=== PATIENT | male | born 1975 | race American Indian/Alaskan Native ===

== ENCOUNTER 2016-09-14 06:31 | Emergency (ER) | payer MEDICAID, OTHER ==
[2016-09-14 07:02] VITALS: RESP 18; TEMP 98.1; O2SAT 100
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
[2016-09-14 12:14] LABS: BASO # 0.1 K/uL (0.0-0.2); BASO % 1.1 % (0.0-2.0); EOS # 0.1 K/uL (0.0-0.7); EOS % 2.7 % (0.0-4.0); HEMATOCRIT 37.1 % (35.0-51.0); LYMPH # 1.7 K/uL (1.0-4.3); LYMPH % 36.5 % (20.0-40.0); MEAN CELL VOLUME 95.8 fl (80.0-94.0); MEAN CORPUSCULAR HEMOGLOBIN 33.2 pg (27.0-31.0); MEAN CORPUSCULAR HGB CONC 34.7 g/dL (33.0-37.0); MEAN PLATELET VOLUME 7.2 fl (7.2-11.7); MONO # 0.3 K/uL (0.0-0.8); MONO % 6.4 % (0.0-10.0); NEUT # 2.5 K/uL (1.8-7.0); NEUT % 53.3 % (50.0-75.0); NRBC % 0.1 % (0.0-0.0); WHITE BLOOD COUNT 4.7 K/uL (4.8-10.8)
[2016-09-14 12:29] LABS: ALB/GLOB RATIO 1.2 (1.0-2.1); ALKALINE PHOSPHATASE 90 U/L (38-126); ALT/SGPT 30 U/L (21-72); AST/SGOT 50 U/L (17-59); BILIRUBIN,TOTAL 1.2 mg/dl (0.2-1.3); BLOOD UREA NITROGEN 13 mg/dl (9-20); CARBON DIOXIDE 27 mmol/L (22-30); CHLORIDE 106 mmol/L (98-107); GFR AFRICAN-AMERICAN > 60; GLUCOSE,RANDOM 137 mg/dL (75-110); PARTIAL THROMBOPLASTIN TIME 26.8 SECONDS (23.3-32.5); POTASSIUM 3.8 MMOL/L (3.6-5.0); SODIUM 142 mmol/l (132-148); TOTAL PROTEIN 7.1 G/DL (6.3-8.2)
[2016-09-14 13:14] VITALS: BP 136/68; PULSE 64
== END 2016-09-14 13:08 | disposition home or self-care (01) ==
LOC: H.ER 06:31
DX: R10.9 Unspecified abdominal pain (principal); S29.9XXA Unspecified injury of thorax, initial encounter; S05.90XA Unspecified injury of unspecified eye and orbit, initial encounter; S09.90XA Unspecified injury of head, initial encounter; S02.81XA Fracture of other specified skull and facial bones, right side, initial encounter for closed fracture; W19.XXXA Unspecified fall, initial encounter; Y92.89 Other specified places as the place of occurrence of the external cause

== ENCOUNTER 2016-11-08 04:46 | Emergency (ER) | payer MEDICAID, OTHER ==
[2016-11-08 04:47] VITALS: BMI 24.4
[2016-11-08 05:17] VITALS: BP 135/79; TEMP 96.8
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
[2016-11-08 05:45] VITALS: PULSE 101; RESP 16; O2SAT 95
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
== END 2016-11-08 06:01 | disposition home or self-care (01) ==
LOC: H.ER 04:46
DX: S09.90XA Unspecified injury of head, initial encounter (principal); S20.219A Contusion of unspecified front wall of thorax, initial encounter; Y04.0XXA Assault by unarmed brawl or fight, initial encounter; Y92.89 Other specified places as the place of occurrence of the external cause

== ENCOUNTER 2016-12-05 18:54 | Observation (INO) | payer SELFPAY ==
[2016-12-05 18:54] VITALS: BMI 24.4
[2016-12-05 18:58] VITALS: O2SAT 96
[2016-12-05] MEDS ORDERED: Sodium Chloride 0.9% 1,000 ML IV STA (19:09)
[2016-12-05 19:40] LABS: BASO % 0.8 % (0.0-2.0); EOS % 0.4 % (0.0-4.0); HEMATOCRIT 33.6 % (35.0-51.0); LYMPH # 1.7 K/uL (1.0-4.3); LYMPH % 29.8 % (20.0-40.0); MEAN CORPUSCULAR HEMOGLOBIN 32.8 pg (27.0-31.0); MEAN CORPUSCULAR HGB CONC 33.8 g/dL (33.0-37.0); MEAN PLATELET VOLUME 7.3 fl (7.2-11.7); MONO # 0.4 K/uL (0.0-0.8); MONO % 7.8 % (0.0-10.0); NEUT # 3.4 K/uL (1.8-7.0); NEUT % 61.2 % (50.0-75.0); NRBC % 0.1 % (0.0-0.0); RED CELL DISTRIBUTION WIDTH 13.2 % (11.5-14.5); WHITE BLOOD COUNT 5.6 K/uL (4.8-10.8)
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
[2016-12-05 20:58] LABS: ALCOHOL SERUM 249 mg/dl (0-10); BLOOD UREA NITROGEN 12 mg/dl (9-20); CALCIUM 8.6 mg/dL (8.4-10.2); CARBON DIOXIDE 23 mmol/L (22-30); CHLORIDE 109 mmol/L (98-107); GFR AFRICAN-AMERICAN > 60; GLUCOSE,RANDOM 84 mg/dL (75-110); POTASSIUM 3.4 MMOL/L (3.6-5.0); SODIUM 146 mmol/l (132-148)
--- NOTE | 2016-12-06 00:18 | ED PDOC ---
- Laboratory Results Result Diagrams: 12/05/16 19:36 12/05/16 19:36 - ECG O2 Sat by Pulse Oximetry: 96 (RA) Pulse Ox Interpretation: Normal Medical Decision Making Medical Decision Making: Time: 0000 Initial plan: -- Patient signed out to me by Dr. Sweeney. Pending clinical sobriety. --ED-Observation 0430: Discharge Instructions: Re-evaluation. Patient feels better. Discussed results and plan with patient who expresses understanding. Counseling was provided regarding the diagnosis and prognosis. All questions answered and there is agreement with the plan to discharge home with instructions. Patient stable for discharge. Return if symptoms persist or worsen. Scribe Attestation: Documented by Kathy Segundo, acting as a scribe for Benson Taveras MD. Scribe Attestation: All medical record entries made by the Scribe were at my direction and personally dictated by me. I have reviewed the chart and agree that the record accurately reflects my personal performance of the history, physical exam, medical decision making, and the department course for this patient. I have also personally directed, reviewed, and agree with the discharge instructions and disposition. Disposition - Clinical Impression Clinical Impression: Alcohol abuse with intoxication, Polysubstance abuse - POA Present On Arrival: None - Disposition Disposition: Routine/Home Disposition Time: 00:00 Condition: IMPROVED ED OBSERVATION Date of observation admission: 12/06/16 Time of observation admission: 00:00 - Observation admission statement Patient is being placed in observation because:: Alcohol intoxication - Goals of Observation Goals of observation are:: Clinical Sobriety - Progress Note Progress Note: 12/06/16 01:30 Pending Clinical Sobriety 12/06/16 03:00 Pending Clinical Sobriety 12/06/16 04:30 Pending Clinical Sobriety
[2016-12-06 04:41] VITALS: BP 129/71; PULSE 73; RESP 17; TEMP 98.7
--- NOTE | 2016-12-06 10:20 | CARD ---
APPROVED REPORT EKG Measurement Heart [id number] <Conclusion> Normal sinus rhythm Minimal voltage criteria for LVH, may be normal variant Prolonged QT Abnormal ECG
== END 2016-12-06 04:35 | disposition home or self-care (01) ==
LOC: H.ER 18:54 → H.EROBSV 22:22
PROVIDERS: ADMIT Emergency Medicine; ATTEND Emergency Medicine
DX: F10.129 Alcohol abuse with intoxication, unspecified (principal); F17.200 Nicotine dependence, unspecified, uncomplicated
CPT/HCPCS: 80048; 84484; 85025; 93005; 96360; 99283; G0378; G0480; J7040

== ENCOUNTER 2017-02-10 03:39 | Emergency (ER) | payer MEDICAID, OTHER ==
[2017-02-10 03:39] VITALS: BMI 24.4
[2017-02-10 03:52] VITALS: BP 116/80; PULSE 109; RESP 16; TEMP 98.6; O2SAT 97
--- NOTE | 2017-02-10 04:13 | ED PDOC ---
HPI: Back Time Seen by Provider: 02/10/17 03:54 Chief Complaint (Nursing): Back Pain Chief Complaint (Provider): back pain History Per: Patient History/Exam Limitations: no limitations Onset/Duration Of Symptoms: Hrs (2) Current Symptoms Are (Timing): Still Present Exacerbating Factor(s): Turning, Movement Additional History Per: Patient Additional Complaint(s): 41 y/o male presents to ED with back pain x 2 hours. Patient states symptoms started after sleeping on his book bag, worse with movement. Denies numbness/ weakness of extremities, bowel/bladder incontinence, urinary symptoms. Past Medical History Reviewed: Historical Data, Nursing Documentation, Vital Signs Vital Signs: Last Vital Signs Temp 98.6 F 02/10/17 03:50 Pulse 109 H 02/10/17 03:50 Resp 16 02/10/17 03:50 BP 116/80 02/10/17 03:50 Pulse Ox 97 02/10/17 03:50 - Medical History PMH: No Chronic Diseases Denies: Diabetes, Hepatitis, HIV, HTN, Seizures, Sexually Transmitted Disease - Surgical History Surgical History: No Surg Hx - Family History Family History: States: Unknown Family Hx - Living Arrangements Living Arrangements: Alone - Social History Current smoker - smoking cessation education provided: Yes Alcohol: None Drugs: Denies - Immunization History Hx Tetanus Toxoid Vaccination: Yes Hx Influenza Vaccination: (2015) Hx Pneumococcal Vaccination: No - Home Medications Home Medications: Ambulatory Orders Medication Instructions Recorded Ibuprofen [Motrin Tab] 1 tab PO Q6 PRN #20 tab 02/10/17 - Allergies Allergies/Adverse Reactions: Allergies Allergy/AdvReac Type Severity Reaction Status Date / Time No Known Allergies Allergy Verified 02/10/17 03:50 Review of Systems ROS Statement: Except As Marked, All Systems Reviewed And Found Negative Musculoskeletal: Positive for: Back Pain Physical Exam - Reviewed Nursing Documentation Reviewed: Yes Vital Signs Reviewed: Yes - Physical Exam Appears: Positive for: Well, Non-toxic, No Acute Distress (sleeping) Head Exam: Positive for: ATRAUMATIC, NORMAL INSPECTION, NORMOCEPHALIC Skin: Positive for: Normal Color ENT: Positive for: Normal ENT Inspection Cardiovascular/Chest: Positive for: Regular Rate, Rhythm Respiratory: Positive for: Normal Breath Sounds Gastrointestinal/Abdominal: Positive for: Normal Exam Back: Positive for: Muscle Spasm (left tspine paraspinals). Negative for: L CVA Tenderness, R CVA Tenderness, Vertebral Tenderness, Decreased ROM Extremity: Positive for: Normal ROM Neurologic/Psych: Positive for: Alert, Oriented - ECG O2 Sat by Pulse Oximetry: 97 - Progress ED Course And Treament: ibuprofen Disposition - Clinical Impression Clinical Impression: Back pain - Patient ED Disposition Is Patient to be Admitted: No Counseled Patient/Family Regarding: Diagnosis, Need For Followup, Rx Given - Disposition Referrals: [facility] [Outside] Disposition: Routine/Home Disposition Time: 05:08 Condition: IMPROVED Prescriptions: Ibuprofen [Motrin Tab] 1 tab PO Q6 PRN #20 tab PRN Reason: Pain, Moderate (4-7) Instructions: Acute Low Back Pain (ED)
== END 2017-02-10 06:15 | disposition home or self-care (01) ==
LOC: H.ER 03:39
DX: M54.5 Low back pain (principal)

== ENCOUNTER 2017-02-18 06:53 | Emergency (ER) | payer OTHER ==
[2017-02-18 06:54] VITALS: BMI 24.4
[2017-02-18 07:06] VITALS: RESP 16
[2017-02-18] MEDS ORDERED: Sodium Chloride 0.9% 1,000 ML IV STA (07:33)
--- NOTE | 2017-02-18 08:07 | ED PDOC ---
HPI: Chest Pain Time Seen by Provider: 02/18/17 07:17 Chief Complaint (Nursing): Chest Pain Chief Complaint (Provider): Chest Pain History Per: Patient History/Exam Limitations: no limitations Onset/Duration Of Symptoms: Days (x 2) Current Symptoms Are (Timing): Still Present Exacerbating Factors: Movement, Other (Cough) Additional Complaint(s): Mitchell Chicas is a 41 y/o male who presents to the ED complaining of left- sided, non-radiating chest pain with associated dry cough and congestion since yesterday. Reports that 3-4 hours ago, he noticed palpitations and became short of breath, prompting ED visit. Denies nausea, vomiting, diarrhea, abdominal pain , weakness, numbness, and leg pain. No weakness. No long distance travel or hormone use. PMD: None Past Medical History Reviewed: Historical Data, Nursing Documentation, Vital Signs Vital Signs: Last Vital Signs Temp 98.6 F 02/18/17 07:04 Pulse 114 H 02/18/17 07:04 Resp 16 02/18/17 07:04 BP 151/89 H 02/18/17 07:04 Pulse Ox 99 02/18/17 09:29 - Medical History PMH: No Chronic Diseases Denies: Diabetes, Hepatitis, HIV, HTN, Seizures, Sexually Transmitted Disease - Family History Family History: States: Unknown Family Hx - Social History Current smoker - smoking cessation education provided: Yes Alcohol: None Drugs: Denies - Immunization History Hx Tetanus Toxoid Vaccination: Yes Hx Influenza Vaccination: (2014) Hx Pneumococcal Vaccination: No - Home Medications Home Medications: Ambulatory Orders Medication Instructions Recorded Ibuprofen [Motrin Tab] 1 tab PO Q6 PRN #20 tab 02/10/17 Ibuprofen [Motrin] 600 mg PO TID 7 Days tab 02/18/17 - Allergies Allergies/Adverse Reactions: Allergies Allergy/AdvReac Type Severity Reaction Status Date / Time No Known Allergies Allergy Verified 02/10/17 03:50 Review of Systems ROS Statement: Except As Marked, All Systems Reviewed And Found Negative Constitutional: Negative for: Fever, Chills ENT: Positive for: Nose Congestion Cardiovascular: Positive for: Chest Pain, Palpitations Respiratory: Positive for: Cough, Shortness of Breath Gastrointestinal: Negative for: Nausea, Vomiting, Abdominal Pain, Diarrhea Musculoskeletal: Negative for: Leg Pain Neurological: Negative for: Weakness, Numbness Physical Exam - Reviewed Nursing Documentation Reviewed: Yes Vital Signs Reviewed: Yes - Physical Exam Appears: Positive for: Non-toxic, No Acute Distress Head Exam: Positive for: ATRAUMATIC, NORMAL INSPECTION, NORMOCEPHALIC Skin: Positive for: Normal Color, Warm, Dry Eye Exam: Positive for: EOMI, Normal appearance, PERRL ENT: Positive for: Nasal Congestion Neck: Positive for: Normal, Painless ROM, Supple Cardiovascular/Chest: Positive for: Regular Rate, Rhythm, Other (Tenderness to left chest on palpation). Negative for: Murmur Respiratory: Positive for: Normal Breath Sounds. Negative for: Accessory Muscle Use, Respiratory Distress Gastrointestinal/Abdominal: Positive for: Normal Exam, Soft. Negative for: Tenderness Back: Positive for: Normal Inspection. Negative for: L CVA Tenderness, R CVA Tenderness Extremity: Positive for: Normal ROM, Capillary Refill (< 2 sec). Negative for: Pedal Edema, Deformity Neurologic/Psych: Positive for: Alert, Oriented. Negative for: Motor/Sensory Deficits - Laboratory Results Result Diagrams: 02/18/17 08:30 02/18/17 08:30 Interpretation Of Abn Labs: no acute - ECG ECG: Positive for: Interpreted By Me, Viewed By Nh ECG Rhythm: Positive for: Normal QRS, Normal ST Segment, Sinus Rhythm O2 Sat by Pulse Oximetry: 99 (RA) Pulse Ox Interpretation: Normal - Radiology X-Ray: Read By Radiologist X-Ray Interpretation: No Acute Disease - Progress ED Course And Treament: 935: Stable. AAOx3. Pain free. Tolerated PO. Fu with pcp. Medical Decision Making Medical Decision Making: Time: 07:30 Initial Impression: Chest pain Initial Plan: --EKG --CMP --Troponin I --CBC --PTT --Prothrombin time --Chest x-ray 2 views --NS IV 1000 ml at 1000 mls/hr --Toradol 15 mg given IV --Pending reevaluation Scribe Attestation: Documented by Taylor Mendiola, acting as a scribe for Dilan Sung MD Provider Scribe Attestation: All medical record entries made by the Scribe were at my direction and personally dictated by me. I have reviewed the chart and agree that the record accurately reflects my personal performance of the history, physical exam, medical decision making, and the department course for this patient. I have also personally directed, reviewed, and agree with the discharge instructions and disposition. Disposition - Clinical Impression Clinical Impression: Chest wall pain, URI, acute - Patient ED Disposition Is Patient to be Admitted: No Counseled Patient/Family Regarding: Studies Performed, Diagnosis, Need For Followup, Rx Given - Disposition Referrals: [facility] [Outside] - 02/23/17 Disposition: Routine/Home Disposition Time: 09:36 Condition: STABLE Additional Instructions: Return if not better in 3 days. Prescriptions: Ibuprofen [Motrin] 600 mg PO TID 7 Days tab Instructions: Chest Wall Pain (ED), Upper Respiratory Infection (ED) Forms: [employer] ([place]), [facility] ED School/Work Excuse
[2017-02-18 08:40] LABS: BASO % 0.8 % (0.0-2.0); EOS % 0.8 % (0.0-4.0); HEMATOCRIT 34.4 % (35.0-51.0); LYMPH # 1.2 K/uL (1.0-4.3); LYMPH % 22.6 % (20.0-40.0); MEAN CELL VOLUME 97.9 fl (80.0-94.0); MEAN CORPUSCULAR HGB CONC 33.7 g/dL (33.0-37.0); MEAN PLATELET VOLUME 7.9 fl (7.2-11.7); MONO # 0.6 K/uL (0.0-0.8); MONO % 10.1 % (0.0-10.0); NEUT # 3.6 K/uL (1.8-7.0); NEUT % 65.7 % (50.0-75.0); RED CELL DISTRIBUTION WIDTH 12.8 % (11.5-14.5); WHITE BLOOD COUNT 5.4 K/uL (4.8-10.8)
[2017-02-18 08:49] LABS: ALB/GLOB RATIO 1.5 (1.0-2.1); ALKALINE PHOSPHATASE 77 U/L (38-126); ALT/SGPT 26 U/L (21-72); AST/SGOT 36 U/L (17-59); BILIRUBIN,TOTAL 0.4 mg/dl (0.2-1.3); BLOOD UREA NITROGEN 10 mg/dl (9-20); CALCIUM 9.1 mg/dL (8.4-10.2); CARBON DIOXIDE 27 mmol/L (22-30); CHLORIDE 105 mmol/L (98-107); GFR AFRICAN-AMERICAN > 60; GLUCOSE,RANDOM 78 mg/dL (75-110); POTASSIUM 3.6 MMOL/L (3.6-5.0); SODIUM 145 mmol/l (132-148); TOTAL PROTEIN 7.8 G/DL (6.3-8.2)
[2017-02-18 09:03] LABS: PARTIAL THROMBOPLASTIN TIME 28.7 Seconds (25.6-37.1)
--- NOTE | 2017-02-18 09:04 | RAD ---
HISTORY: dyspnea COMPARISON: 11/08/2016 TECHNIQUE: Chest PA and lateral FINDINGS: LUNGS: No active pulmonary disease. PLEURA: No significant pleural effusion identified. No pneumothorax apparent. CARDIOVASCULAR: Normal. OSSEOUS STRUCTURES: No significant abnormalities. VISUALIZED UPPER ABDOMEN: Normal. OTHER FINDINGS: None. IMPRESSION: No active disease. No significant interval change compared to the prior examination(s). Please note: No preliminary report/ innterpretation of this examination provided by emergency department personnel.
[2017-02-18 09:50] VITALS: BP 135/81; PULSE 85; TEMP 98; O2SAT 98
--- NOTE | 2017-02-19 20:29 | CARD ---
APPROVED REPORT EKG Measurement Heart [id number] <Conclusion> Sinus tachycardia Voltage criteria for left ventricular hypertrophy Abnormal ECG
== END 2017-02-18 09:51 | disposition home or self-care (01) ==
LOC: H.ER 06:53
DX: J06.9 Acute upper respiratory infection, unspecified (principal); R07.89 Other chest pain
CPT/HCPCS: 71020; 80053; 84484; 85025; 85610; 85730; 93005; 96374; 99283; J1885; J7040

== ENCOUNTER 2017-03-25 01:29 | Emergency (ER) | payer SELFPAY ==
[2017-03-25 01:29] VITALS: BMI 24.4
[2017-03-25 01:44] VITALS: BP 133/90; PULSE 101; RESP 17; TEMP 98.4; O2SAT 100
--- NOTE | 2017-03-25 03:01 | ED PDOC ---
HPI: General Adult Time Seen by Provider: 03/25/17 01:55 Chief Complaint (Nursing): Medical Clearance Chief Complaint (Provider): clearance for incarceration History Per: Patient History/Exam Limitations: no limitations Onset/Duration Of Symptoms: Hrs Current Symptoms Are (Timing): Gone Now Additional History Per: Patient Additional Complaint(s): 41 y/o male here in police custody for medical/psych clearance for incarceration. Patient states around 23:00 last night he was laying down and developed chest pain, and felt like his heart was "skipping beats". Patient noted difficulty breathing at that time. Patient states symptoms lasted one hour then resolved. Patient admits to drinking earlier tonight. Denies fever, headache, dizziness, nausea/vomiting, chest pain, shortness of breath, palpitations, abdominal pain, leg pain/swelling, drug use. Denies suicidal/ homicidal ideations. Past Medical History Reviewed: Historical Data, Nursing Documentation, Vital Signs Vital Signs: Last Vital Signs Temp 98.4 F 03/25/17 01:38 Pulse 101 H 03/25/17 01:38 Resp 17 03/25/17 01:38 BP 133/90 03/25/17 01:38 Pulse Ox 100 03/25/17 03:07 - Medical History PMH: No Chronic Diseases Denies: Diabetes, Hepatitis, HIV, HTN, Seizures, Sexually Transmitted Disease - Surgical History Surgical History: No Surg Hx - Family History Family History: States: Unknown Family Hx - Immunization History Hx Tetanus Toxoid Vaccination: Yes Hx Influenza Vaccination: (2014) Hx Pneumococcal Vaccination: No - Home Medications Home Medications: Ambulatory Orders Medication Instructions Recorded Ibuprofen [Motrin Tab] 1 tab PO Q6 PRN #20 tab 02/10/17 Ibuprofen [Motrin] 600 mg PO TID 7 Days tab 02/18/17 - Allergies Allergies/Adverse Reactions: Allergies Allergy/AdvReac Type Severity Reaction Status Date / Time No Known Allergies Allergy Verified 02/10/17 03:50 Review of Systems ROS Statement: Except As Marked, All Systems Reviewed And Found Negative Physical Exam - Reviewed Nursing Documentation Reviewed: Yes Vital Signs Reviewed: Yes - Physical Exam Appears: Positive for: Well, Non-toxic, No Acute Distress Head Exam: Positive for: ATRAUMATIC, NORMAL INSPECTION, NORMOCEPHALIC Skin: Positive for: Normal Color Eye Exam: Positive for: Normal appearance ENT: Positive for: Normal ENT Inspection Cardiovascular/Chest: Positive for: Regular Rate, Rhythm Respiratory: Positive for: Normal Breath Sounds Gastrointestinal/Abdominal: Positive for: Normal Exam Back: Positive for: Normal Inspection Extremity: Positive for: Normal ROM Neurologic/Psych: Positive for: Alert, Oriented - ECG ECG: Positive for: Viewed By Me (reviewed by ED attending) ECG Rhythm: Positive for: Sinus Rhythm O2 Sat by Pulse Oximetry: 100 - Progress ED Course And Treament: ekg, crisis eval Patient evaluated by fish house worker and cleared for discharge as per Dr. Villalba Disposition - Clinical Impression Clinical Impression: Adjustment disorder - Disposition Disposition: Discharged/Transfer to Law Enforcement Disposition Time: 03:36 Condition: STABLE Additional Instructions: Patient medically and psychiatrically cleared for incarceration Instructions: Stress (ED)
== END 2017-03-25 04:15 ==
LOC: H.ER 01:29
DX: F43.20 Adjustment disorder, unspecified (principal)